=== PATIENT | male | born 1940 | race Caucasian/White ===

== ENCOUNTER 2017-01-16 09:51 | Observation (INO) | payer MEDICARE, SELFPAY ==
[~2017-01-16] VITALS: Ht 180.3 cm; Wt 91.7 kg
[2017-01-16 11:27] LABS: BASO % 0.6 % (0.2-1.2); EOS # 0.1 10_X3_uL (0.0-0.5); GRAN # 4.8 10_X3_uL (1.8-5.4); GRAN % 72.3 % (34.0-67.9); HEMATOCRIT 45.5 % (40-51); HEMOGLOBIN 15.4 g/dL (13.7-17.5); LYMPH # 1.2 10_X3_uL (1.3-3.6); LYMPH % 18.6 % (21.8-53.1); MEAN CORPUSCULAR HEMOGLOBIN 30.2 pg (27.0-33.0); MEAN CORPUSCULAR HGB CONC 33.8 g/dL (32.0-36.0); MEAN CORPUSCULAR VOLUME 89.2 fL (79-92); MEAN PLATELET VOLUME 11.6 fl (7.5-11.5); MONO # 0.5 10_X3_uL (0.3-0.8); MONO % 7.5 % (5.3-12.2); PLATELET COUNT 165 x10_3/uL (163-337); RED CELL DISTRIBUTION WIDTH 14.3 % (11.6-14.4); WHITE BLOOD COUNT 6.7 x10_3/uL (4.2-9.1)
[2017-01-16 11:37] LABS: ALBUMIN 4.2 gm/dL (3.4-5.0); ALKALINE PHOSPHATASE 58 U/L (50-136); ALT/SGPT 11 U/L (7.53-40.17); AST/SGOT 16 U/L (6.66-35.34); BILIRUBIN,TOTAL 0.63 mg/dL (0.0-1.0); BLOOD UREA NITROGEN 14 mg/dL (7-18); CALCIUM 9.7 mg/dL (8.7-10.7); CARBON DIOXIDE 31 mmol/L (21-32); CREATININE 0.9 mg/dL (0.6-1.3); GLUCOSE,RANDOM 104 mg/dL (70-99); POTASSIUM 4.4 mmol/L (3.5-5.1); SODIUM 142 mmol/L (136-145); TOTAL PROTEIN 7.3 gm/dL (6.4-8.2)
[2017-01-17 07:51] LABS: AHDL CHOLESTEROL 47 mg/dL (>40); ALBUMIN 3.9 gm/dL (3.4-5.0); ALKALINE PHOSPHATASE 51 U/L (50-136); ALT/SGPT 10 U/L (7.53-40.17); AST/SGOT 15 U/L (6.66-35.34); BILIRUBIN,TOTAL 0.58 mg/dL (0.0-1.0); BLOOD UREA NITROGEN 13 mg/dL (7-18); CARBON DIOXIDE 31 mmol/L (21-32); CHOLESTEROL 216 mg/dL (0-200); CREATININE 0.9 mg/dL (0.6-1.3); GLUCOSE,RANDOM 91 mg/dL (70-99); LDL CHOLESTEROL 160 mg/dL (0-99); POTASSIUM 4.2 mmol/L (3.5-5.1); SODIUM 144 mmol/L (136-145); TOTAL PROTEIN 6.6 gm/dL (6.4-8.2); TRIGLYCERIDES 83 mg/dL (30-200)
[2017-01-18 07:14] LABS: HEMATOCRIT 39.2 % (40-51); MEAN CORPUSCULAR HEMOGLOBIN 29.5 pg (27.0-33.0); MEAN CORPUSCULAR HGB CONC 33.2 g/dL (32.0-36.0); MEAN CORPUSCULAR VOLUME 88.9 fL (79-92); MEAN PLATELET VOLUME 11.4 fl (7.5-11.5); RED BLOOD COUNT 4.41 x10_6/uL (4.6-6.1); RED CELL DISTRIBUTION WIDTH 13.8 % (11.6-14.4); WHITE BLOOD COUNT 5.3 x10_3/uL (4.2-9.1)
[2017-01-18 07:25] LABS: ALBUMIN 3.4 gm/dL (3.4-5.0); ALKALINE PHOSPHATASE 47 U/L (50-136); ALT/SGPT 8 U/L (7.53-40.17); AST/SGOT 12 U/L (6.66-35.34); BILIRUBIN,TOTAL 0.41 mg/dL (0.0-1.0); BLOOD UREA NITROGEN 17 mg/dL (7-18); CALCIUM 8.7 mg/dL (8.7-10.7); CARBON DIOXIDE 32 mmol/L (21-32); GLUCOSE,RANDOM 102 mg/dL (70-99); POTASSIUM 3.9 mmol/L (3.5-5.1); SODIUM 143 mmol/L (136-145)
[2017-01-18 14:11] LABS: URINE BILIRUBIN NEGATIVE (NEGATIVE); URINE BLOOD TRACE (NEGATIVE); URINE GLUCOSE (UA) NORMAL (NORMAL); URINE KETONE TRACE (NEGATIVE); URINE LEUKOCYTE ESTERASE TRACE (NEGATIVE); URINE NITRATE NEGATIVE (NEGATIVE); URINE PROTEIN 1+ (NEGATIVE); UROBILINOGEN NORMAL mg/dL (<1.0)
[2017-01-18 14:59] LABS: URINE BACTERIA TRACE (NONE SEEN); URINE MUCUS 1+; URINE RBC 0-5 /[HPF] (0-2); URINE SQUAMOUS EPITHELIAL CELL 0-10 /[HPF] (NONE SEEN); URINE WBC 0-5 /[HPF] (0-3)
[2017-01-19 07:37] LABS: HEMATOCRIT 43.9 % (40-51); HEMOGLOBIN 14.3 g/dL (13.7-17.5); MEAN CORPUSCULAR HEMOGLOBIN 29.7 pg (27.0-33.0); MEAN CORPUSCULAR HGB CONC 32.6 g/dL (32.0-36.0); MEAN CORPUSCULAR VOLUME 91.3 fL (79-92); MEAN PLATELET VOLUME 11.3 fl (7.5-11.5); RED BLOOD COUNT 4.81 x10_6/uL (4.6-6.1); RED CELL DISTRIBUTION WIDTH 14.1 % (11.6-14.4); WHITE BLOOD COUNT 5.6 x10_3/uL (4.2-9.1)
[2017-01-19 07:55] LABS: BLOOD UREA NITROGEN 19 mg/dL (7-18); CALCIUM 9.2 mg/dL (8.7-10.7); CARBON DIOXIDE 33 mmol/L (21-32); GLUCOSE,RANDOM 93 mg/dL (70-99); SODIUM 146 mmol/L (136-145)
== END 2017-01-19 10:45 | disposition home or self-care (01) ==
LOC: MS 09:51
PROVIDERS: ADMIT Family Medicine
DX: J44.0 Chronic obstructive pulmonary disease with (acute) lower respiratory infection (principal); J18.9 Pneumonia, unspecified organism; J44.1 Chronic obstructive pulmonary disease with (acute) exacerbation; N39.0 Urinary tract infection, site not specified; R10.32 Left lower quadrant pain; N40.0 Benign prostatic hyperplasia without lower urinary tract symptoms; I10 Essential (primary) hypertension; E78.5 Hyperlipidemia, unspecified; I25.10 Atherosclerotic heart disease of native coronary artery without angina pectoris; N28.9 Disorder of kidney and ureter, unspecified; J90 Pleural effusion, not elsewhere classified; I48.91 Unspecified atrial fibrillation; I48.92 Unspecified atrial flutter; B96.1 Klebsiella pneumoniae [K. pneumoniae] as the cause of diseases classified elsewhere; B96.89 Other specified bacterial agents as the cause of diseases classified elsewhere; R58 Hemorrhage, not elsewhere classified; R59.1 Generalized enlarged lymph nodes; R31.9 Hematuria, unspecified; R10.9 Unspecified abdominal pain; J43.9 Emphysema, unspecified; R91.1 Solitary pulmonary nodule; Z79.82 Long term (current) use of aspirin; Z79.899 Other long term (current) drug therapy; Z88.1 Allergy status to other antibiotic agents; Z88.8 Allergy status to other drugs, medicaments and biological substances
CPT/HCPCS: 36415; 71250; 80048; 80053; 80061; 80198; 81001; 82962; 83036; 85025; 87040; 87070; 87186; 87205; 93005; 94664; 96361; 96365; 96366; 96367; 96375; 99070; G0328-QW; G0378; J7050

== ENCOUNTER 2017-02-19 16:04 | Emergency (ER) | payer MEDICARE, SELFPAY | END 2017-02-19 21:12 | disposition other institution (70) | LOC: ER 16:04 | DX: J44.1 Chronic obstructive pulmonary disease with (acute) exacerbation (principal); I10 Essential (primary) hypertension; F41.9 Anxiety disorder, unspecified; Z99.81 Dependence on supplemental oxygen; Z85.038 Personal history of other malignant neoplasm of large intestine; Z79.82 Long term (current) use of aspirin; Z79.899 Other long term (current) drug therapy; Z88.1 Allergy status to other antibiotic agents ==

== ENCOUNTER 2017-02-19 16:04 | Inpatient (IN) | payer MEDICARE, OTHER | END 2017-02-24 10:26 | disposition home or self-care (01) | DRG 190 | LOC: ER 16:04 → MS 21:12 | PROVIDERS: ADMIT Family Medicine | DX: J44.1 Chronic obstructive pulmonary disease with (acute) exacerbation (principal); I50.23 Acute on chronic systolic (congestive) heart failure; J90 Pleural effusion, not elsewhere classified; I25.10 Atherosclerotic heart disease of native coronary artery without angina pectoris; N40.0 Benign prostatic hyperplasia without lower urinary tract symptoms; I11.0 Hypertensive heart disease with heart failure; R60.0 Localized edema; G89.29 Other chronic pain; M54.9 Dorsalgia, unspecified; Z85.038 Personal history of other malignant neoplasm of large intestine; I49.3 Ventricular premature depolarization; I44.7 Left bundle-branch block, unspecified; I48.91 Unspecified atrial fibrillation; Z79.82 Long term (current) use of aspirin; Z79.899 Other long term (current) drug therapy; Z88.1 Allergy status to other antibiotic agents; Z87.891 Personal history of nicotine dependence; Z86.73 Personal history of transient ischemic attack (TIA), and cerebral infarction without residual deficits; Z99.81 Dependence on supplemental oxygen; Z82.49 Family history of ischemic heart disease and other diseases of the circulatory system; Z83.3 Family history of diabetes mellitus ==

== ENCOUNTER 2017-03-14 20:25 | Emergency (ER) | payer MEDICARE, SELFPAY | END 2017-03-14 21:00 | disposition left against medical advice (07) | LOC: ER 20:25 | DX: M79.602 Pain in left arm (principal) | CPT/HCPCS: 93005; 99283-25 ==

== ENCOUNTER 2017-03-27 06:58 | Emergency (ER) | payer MEDICARE, OTHER | END 2017-03-27 08:58 | disposition other institution (70) | LOC: ER 06:58 | DX: J44.0 Chronic obstructive pulmonary disease with (acute) lower respiratory infection (principal); J18.9 Pneumonia, unspecified organism; J44.1 Chronic obstructive pulmonary disease with (acute) exacerbation; I50.9 Heart failure, unspecified; R05 Cough; R06.02 Shortness of breath; I48.91 Unspecified atrial fibrillation; R53.1 Weakness; Z99.81 Dependence on supplemental oxygen; Z79.899 Other long term (current) drug therapy; Z79.82 Long term (current) use of aspirin; Z88.1 Allergy status to other antibiotic agents | CPT/HCPCS: 99284; 99285-25 ==

== ENCOUNTER 2017-03-27 06:58 | Inpatient (IN) | payer MEDICARE, MEDICAID ==
[~2017-03-27] VITALS: Ht 180.3 cm; Wt 90.0 kg
[2017-03-27 07:16] LABS: BASO % 0.6 % (0.2-1.2); EOS # 0.1 10_X3_uL (0.0-0.5); GRAN # 4.3 10_X3_uL (1.8-5.4); GRAN % 67.4 % (34.0-67.9); HEMATOCRIT 44.3 % (40-51); HEMOGLOBIN 14.6 g/dL (13.7-17.5); LYMPH # 1.3 10_X3_uL (1.3-3.6); LYMPH % 20.9 % (21.8-53.1); MEAN CORPUSCULAR HEMOGLOBIN 29.6 pg (27.0-33.0); MEAN CORPUSCULAR VOLUME 89.9 fL (79-92); MEAN PLATELET VOLUME 11.1 fl (7.5-11.5); MONO # 0.6 10_X3_uL (0.3-0.8); MONO % 10.1 % (5.3-12.2); PLATELET COUNT 135 x10_3/uL (163-337); RED BLOOD COUNT 4.93 x10_6/uL (4.6-6.1); RED CELL DISTRIBUTION WIDTH 14.4 % (11.6-14.4); WHITE BLOOD COUNT 6.3 x10_3/uL (4.2-9.1)
[2017-03-27 07:31] LABS: ALKALINE PHOSPHATASE 55 U/L (50-136); ALT/SGPT 13 U/L (7.53-40.17); AST/SGOT 16 U/L (6.66-35.34); BILIRUBIN,TOTAL 0.66 mg/dL (0.0-1.0); BLOOD UREA NITROGEN 20 mg/dL (7-18); CALCIUM 8.9 mg/dL (8.7-10.7); CARBON DIOXIDE 26 mmol/L (21-32); CREATINE KINASE 65 U/L (35-232); CREATININE 0.9 mg/dL (0.6-1.3); GLUCOSE,RANDOM 118 mg/dL (70-99); POTASSIUM 4.2 mmol/L (3.5-5.1); SODIUM 145 mmol/L (136-145); TOTAL PROTEIN 6.6 gm/dL (6.4-8.2)
[2017-03-27 18:29] LABS: URINE BILIRUBIN NEGATIVE (NEGATIVE); URINE BLOOD TRACE (NEGATIVE); URINE GLUCOSE (UA) 50 mg/dL (NORMAL); URINE KETONE 3+ (NEGATIVE); URINE LEUKOCYTE ESTERASE TRACE (NEGATIVE); URINE NITRATE NEGATIVE (NEGATIVE); URINE PROTEIN 2+ (NEGATIVE); UROBILINOGEN NORMAL mg/dL (<1.0)
[2017-03-27 20:09] LABS: URINE MUCUS 2+; URINE RBC 0-5 /[HPF] (0-2); URINE WBC 0-5 /[HPF] (0-3)
[2017-03-28 07:16] LABS: HEMATOCRIT 40.5 % (40-51); HEMOGLOBIN 13.4 g/dL (13.7-17.5); MEAN CORPUSCULAR HEMOGLOBIN 29.6 pg (27.0-33.0); MEAN CORPUSCULAR HGB CONC 33.1 g/dL (32.0-36.0); MEAN CORPUSCULAR VOLUME 89.4 fL (79-92); MEAN PLATELET VOLUME 11.6 fl (7.5-11.5); RED BLOOD COUNT 4.53 x10_6/uL (4.6-6.1); RED CELL DISTRIBUTION WIDTH 14.2 % (11.6-14.4)
[2017-03-28 07:37] LABS: BLOOD UREA NITROGEN 22 mg/dL (7-18); CALCIUM 8.8 mg/dL (8.7-10.7); CARBON DIOXIDE 27 mmol/L (21-32); GLUCOSE,RANDOM 166 mg/dL (70-99); POTASSIUM 4.8 mmol/L (3.5-5.1); SODIUM 142 mmol/L (136-145)
[2017-03-29 07:50] LABS: HEMATOCRIT 41.4 % (40-51); HEMOGLOBIN 13.4 g/dL (13.7-17.5); MEAN CORPUSCULAR HEMOGLOBIN 29.5 pg (27.0-33.0); MEAN CORPUSCULAR HGB CONC 32.4 g/dL (32.0-36.0); MEAN PLATELET VOLUME 11.8 fl (7.5-11.5); RED BLOOD COUNT 4.55 x10_6/uL (4.6-6.1); RED CELL DISTRIBUTION WIDTH 14.9 % (11.6-14.4)
[2017-03-29 07:53] LABS: WHITE BLOOD COUNT 21.5 x10_3/uL (4.2-9.1)
[2017-03-29 07:54] LABS: ALBUMIN 3.9 gm/dL (3.4-5.0); ALKALINE PHOSPHATASE 59 U/L (50-136); ALT/SGPT 13 U/L (7.53-40.17); AST/SGOT 16 U/L (6.66-35.34); BILIRUBIN,TOTAL 0.44 mg/dL (0.0-1.0); CALCIUM 8.5 mg/dL (8.7-10.7); CARBON DIOXIDE 28 mmol/L (21-32); GLUCOSE,RANDOM 155 mg/dL (70-99); POTASSIUM 4.2 mmol/L (3.5-5.1); SODIUM 142 mmol/L (136-145); TOTAL PROTEIN 6.5 gm/dL (6.4-8.2)
[2017-03-29 07:55] LABS: BLOOD UREA NITROGEN 30 mg/dL (7-18)
[2017-03-31 06:50] LABS: HEMATOCRIT 42.7 % (40-51); HEMOGLOBIN 13.8 g/dL (13.7-17.5); MEAN CORPUSCULAR HEMOGLOBIN 29.2 pg (27.0-33.0); MEAN CORPUSCULAR HGB CONC 32.3 g/dL (32.0-36.0); MEAN CORPUSCULAR VOLUME 90.5 fL (79-92); MEAN PLATELET VOLUME 11.7 fl (7.5-11.5); RED BLOOD COUNT 4.72 x10_6/uL (4.6-6.1); RED CELL DISTRIBUTION WIDTH 14.9 % (11.6-14.4); WHITE BLOOD COUNT 13.4 x10_3/uL (4.2-9.1)
[2017-03-31 06:57] LABS: BLOOD UREA NITROGEN 30 mg/dL (7-18); CALCIUM 8.1 mg/dL (8.7-10.7); CARBON DIOXIDE 29 mmol/L (21-32); CREATININE 0.8 mg/dL (0.6-1.3); GLUCOSE,RANDOM 156 mg/dL (70-99); POTASSIUM 4.2 mmol/L (3.5-5.1); SODIUM 142 mmol/L (136-145)
== END 2017-03-31 10:35 | disposition swing bed (61) | DRG 190 ==
LOC: ER 06:58 → MS 08:58
PROVIDERS: Emergency Medicine; ADMIT Family Medicine
DX: J44.0 Chronic obstructive pulmonary disease with (acute) lower respiratory infection (principal); J18.9 Pneumonia, unspecified organism; J20.9 Acute bronchitis, unspecified; J44.1 Chronic obstructive pulmonary disease with (acute) exacerbation; B96.89 Other specified bacterial agents as the cause of diseases classified elsewhere; I48.91 Unspecified atrial fibrillation; I11.0 Hypertensive heart disease with heart failure; I50.9 Heart failure, unspecified; K59.00 Constipation, unspecified; F41.9 Anxiety disorder, unspecified; F32.9 Major depressive disorder, single episode, unspecified; R30.0 Dysuria; N40.0 Benign prostatic hyperplasia without lower urinary tract symptoms; R51 Headache; R42 Dizziness and giddiness; R07.9 Chest pain, unspecified; Z86.73 Personal history of transient ischemic attack (TIA), and cerebral infarction without residual deficits; Z79.82 Long term (current) use of aspirin; Z79.899 Other long term (current) drug therapy; Z88.1 Allergy status to other antibiotic agents; Z87.891 Personal history of nicotine dependence; Z99.81 Dependence on supplemental oxygen
CPT/HCPCS: 36415; 71010; 80048; 80053; 80198; 81001; 82550; 82553; 83605; 83880; 85025; 86738; 87040; 87070; 87186; 87205; 87449; 93005; 94640; 94664; 96365; 96375; 99070; 99284; 99285-25; J2930

== ENCOUNTER 2017-03-31 10:52 | Inpatient (IN) | payer MEDICARE, MEDICAID ==
[~2017-03-31] VITALS: Ht 189.3 cm; Wt 94.0 kg
[2017-04-03 06:40] LABS: HEMATOCRIT 44.3 % (40-51); HEMOGLOBIN 14.8 g/dL (13.7-17.5); MEAN CORPUSCULAR HEMOGLOBIN 29.6 pg (27.0-33.0); MEAN CORPUSCULAR HGB CONC 33.4 g/dL (32.0-36.0); MEAN CORPUSCULAR VOLUME 88.6 fL (79-92); MEAN PLATELET VOLUME 11.5 fl (7.5-11.5); RED CELL DISTRIBUTION WIDTH 14.7 % (11.6-14.4); WHITE BLOOD COUNT 15.7 x10_3/uL (4.2-9.1)
[2017-04-03 07:14] LABS: BLOOD UREA NITROGEN 32 mg/dL (7-18); CALCIUM 8.3 mg/dL (8.7-10.7); CARBON DIOXIDE 35 mmol/L (21-32); CREATININE 0.9 mg/dL (0.6-1.3); GLUCOSE,RANDOM 165 mg/dL (70-99); SODIUM 143 mmol/L (136-145)
[2017-04-03 15:04] LABS: URINE BILIRUBIN NEGATIVE (NEGATIVE); URINE BLOOD TRACE (NEGATIVE); URINE GLUCOSE (UA) NORMAL (NORMAL); URINE KETONE NEGATIVE (NEGATIVE); URINE LEUKOCYTE ESTERASE TRACE (NEGATIVE); URINE NITRATE NEGATIVE (NEGATIVE); URINE PROTEIN TRACE (NEGATIVE); UROBILINOGEN NORMAL mg/dL (<1.0)
[2017-04-03 15:42] LABS: URINE BACTERIA 1+ (NONE SEEN); URINE WBC 0-5 /[HPF] (0-3)
[2017-04-04 07:16] LABS: BASO % 0.1 % (0.2-1.2); EOS % 0.1 % (0.8-7.0); GRAN # 11.4 10_X3_uL (1.8-5.4); GRAN % 83.2 % (34.0-67.9); HEMATOCRIT 44.5 % (40-51); HEMOGLOBIN 14.7 g/dL (13.7-17.5); LYMPH # 0.9 10_X3_uL (1.3-3.6); LYMPH % 6.7 % (21.8-53.1); MEAN CORPUSCULAR HEMOGLOBIN 29.7 pg (27.0-33.0); MEAN CORPUSCULAR VOLUME 89.9 fL (79-92); MEAN PLATELET VOLUME 11.5 fl (7.5-11.5); MONO # 1.4 10_X3_uL (0.3-0.8); MONO % 9.9 % (5.3-12.2); PLATELET COUNT 140 x10_3/uL (163-337); RED BLOOD COUNT 4.95 x10_6/uL (4.6-6.1); RED CELL DISTRIBUTION WIDTH 14.8 % (11.6-14.4); WHITE BLOOD COUNT 13.7 x10_3/uL (4.2-9.1)
[2017-04-04 07:21] LABS: BLOOD UREA NITROGEN 30 mg/dL (7-18); CALCIUM 8.1 mg/dL (8.7-10.7); CARBON DIOXIDE 37 mmol/L (21-32); CREATININE 0.8 mg/dL (0.6-1.3); GLUCOSE,RANDOM 116 mg/dL (70-99); POTASSIUM 4.6 mmol/L (3.5-5.1); SODIUM 143 mmol/L (136-145)
[2017-04-06 08:10] LABS: HEMATOCRIT 43.7 % (40-51); HEMOGLOBIN 14.3 g/dL (13.7-17.5); MEAN CORPUSCULAR HEMOGLOBIN 29.5 pg (27.0-33.0); MEAN CORPUSCULAR HGB CONC 32.7 g/dL (32.0-36.0); MEAN CORPUSCULAR VOLUME 90.1 fL (79-92); MEAN PLATELET VOLUME 11.5 fl (7.5-11.5); RED BLOOD COUNT 4.85 x10_6/uL (4.6-6.1); RED CELL DISTRIBUTION WIDTH 14.9 % (11.6-14.4); WHITE BLOOD COUNT 10.6 x10_3/uL (4.2-9.1)
[2017-04-06 08:36] LABS: CALCIUM 8.1 mg/dL (8.7-10.7); CARBON DIOXIDE 36 mmol/L (21-32); CREATININE 0.8 mg/dL (0.6-1.3); GLUCOSE,RANDOM 105 mg/dL (70-99); POTASSIUM 4.3 mmol/L (3.5-5.1); SODIUM 144 mmol/L (136-145)
[2017-04-06 08:39] LABS: BLOOD UREA NITROGEN 20 mg/dL (7-18)
== END 2017-04-07 11:00 | disposition home or self-care (01) | DRG 190 ==
LOC: SWING 10:52
PROVIDERS: ADMIT Family Medicine
DX: J44.0 Chronic obstructive pulmonary disease with (acute) lower respiratory infection (principal); J18.9 Pneumonia, unspecified organism; J90 Pleural effusion, not elsewhere classified; J20.9 Acute bronchitis, unspecified; J44.1 Chronic obstructive pulmonary disease with (acute) exacerbation; I11.0 Hypertensive heart disease with heart failure; I50.9 Heart failure, unspecified; D72.829 Elevated white blood cell count, unspecified; E11.9 Type 2 diabetes mellitus without complications; Z79.899 Other long term (current) drug therapy; Z80.9 Family history of malignant neoplasm, unspecified; Z82.49 Family history of ischemic heart disease and other diseases of the circulatory system; Z88.1 Allergy status to other antibiotic agents
CPT/HCPCS: 36415; 71020; 80048; 81001; 85025; 87086; 94640; 99070; J2930

== ENCOUNTER 2017-04-19 14:56 | Inpatient (IN) | payer MEDICARE, OTHER ==
[~2017-04-19] VITALS: Ht 189.3 cm; Wt 90.0 kg
[2017-04-19 15:26] LABS: BASO % 0.3 % (0.2-1.2); EOS # 0.1 10_X3_uL (0.0-0.5); EOS % 2.3 % (0.8-7.0); GRAN # 4.4 10_X3_uL (1.8-5.4); GRAN % 71.8 % (34.0-67.9); MEAN CORPUSCULAR HEMOGLOBIN 29.7 pg (27.0-33.0); MEAN CORPUSCULAR HGB CONC 32.5 g/dL (32.0-36.0); MEAN CORPUSCULAR VOLUME 91.5 fL (79-92); MEAN PLATELET VOLUME 11.1 fl (7.5-11.5); MONO # 0.5 10_X3_uL (0.3-0.8); MONO % 8.6 % (5.3-12.2); PLATELET COUNT 138 x10_3/uL (163-337); RED BLOOD COUNT 4.37 x10_6/uL (4.6-6.1); RED CELL DISTRIBUTION WIDTH 14.5 % (11.6-14.4); WHITE BLOOD COUNT 6.1 x10_3/uL (4.2-9.1)
[2017-04-19 15:44] LABS: ALBUMIN 3.6 gm/dL (3.4-5.0); ALKALINE PHOSPHATASE 48 U/L (50-136); ALT/SGPT 18 U/L (7.53-40.17); AST/SGOT 17 U/L (6.66-35.34); BILIRUBIN,TOTAL 0.36 mg/dL (0.0-1.0); BLOOD UREA NITROGEN 22 mg/dL (7-18); CALCIUM 8.9 mg/dL (8.7-10.7); CARBON DIOXIDE 28 mmol/L (21-32); CREATININE 0.9 mg/dL (0.6-1.3); GLUCOSE,RANDOM 104 mg/dL (70-99); POTASSIUM 4.1 mmol/L (3.5-5.1); SODIUM 143 mmol/L (136-145); TOTAL PROTEIN 6.7 gm/dL (6.4-8.2)
[2017-04-19 18:54] LABS: ARTERIAL BLOOD GAS BASE EXCESS -4.7 mmol/L (-2.0-3.0)
[2017-04-19 19:00] LABS: ARTERIAL BLOOD GAS PCO2 94.1 mmHg (35-48)
[2017-04-19 19:11] LABS: CKMB 2.6 ng/ml (0.0-5.0)
[2017-04-19 19:14] LABS: TROP-I < 0.30 NG/ML (0.00-0.30)
--- NOTE | 2017-04-19 19:28 | NUR ---
PATIENT CAME UP FROM FLOOR AT 1730. PATIENT SAT 89% ON 3L. PATIENT STATES SMOTHERING AND SOA. PATIENT SATS DROPPED TO 77% AND STARTED ON VENTIMASK PATIENT CONTINUED TO DESAT AND DR PATTERSON CAME FROM ER TO INTUBATE. PATIENT INTUBATED AND BEGAN TRANSFER TO [facility] ICU. WILL CONTINUE TO MONITOR.
== END 2017-04-19 20:45 | disposition short-term general hospital (02) | DRG 189 ==
LOC: ER 14:56 → MS 17:00
PROVIDERS: Internal Medicine; ADMIT Family Medicine
DX: J96.00 Acute respiratory failure, unspecified whether with hypoxia or hypercapnia (principal); J44.1 Chronic obstructive pulmonary disease with (acute) exacerbation; I50.1 Left ventricular failure, unspecified; Z99.81 Dependence on supplemental oxygen; I48.91 Unspecified atrial fibrillation; I25.10 Atherosclerotic heart disease of native coronary artery without angina pectoris; Z86.73 Personal history of transient ischemic attack (TIA), and cerebral infarction without residual deficits; I44.7 Left bundle-branch block, unspecified; Z88.1 Allergy status to other antibiotic agents; Z79.899 Other long term (current) drug therapy; Z79.82 Long term (current) use of aspirin
CPT/HCPCS: 36415; 36600; 71010; 80053; 80198; 82550; 82553; 82803; 83880; 85025; 86738; 87040; 92950; 93005; 93041; 94002; 94644; 94664; 96374; 96375; 99070; 99284; 99285-25; J2704; J2930

== ENCOUNTER 2017-04-19 14:56 | Emergency (ER) | payer MEDICARE, SELFPAY | END 2017-04-19 17:00 | disposition other institution (70) | LOC: ER 14:56 | PROC: 0BH17EZ Insertion of Endotracheal Airway into Trachea, Via Natural or Artificial Opening (ICD-10-PCS; principal; 2017-04-19) | PROC: 5A1935Z Respiratory Ventilation, Less than 24 Consecutive Hours (ICD-10-PCS; 2017-04-19) | DX: J96.00 Acute respiratory failure, unspecified whether with hypoxia or hypercapnia (principal); J44.1 Chronic obstructive pulmonary disease with (acute) exacerbation; I50.1 Left ventricular failure, unspecified; Z99.81 Dependence on supplemental oxygen; I48.91 Unspecified atrial fibrillation; I25.10 Atherosclerotic heart disease of native coronary artery without angina pectoris; Z86.73 Personal history of transient ischemic attack (TIA), and cerebral infarction without residual deficits; I44.7 Left bundle-branch block, unspecified; Z88.1 Allergy status to other antibiotic agents; Z79.899 Other long term (current) drug therapy; Z79.82 Long term (current) use of aspirin | CPT/HCPCS: 94002; 96374; 96375; 99284; 99285-25 ==

== ENCOUNTER 2017-08-01 14:59 | Emergency (ER) | payer MEDICARE ==
[2017-08-01 15:53] LABS: BASO % 0.1 % (0.2-1.2); EOS % 0.1 % (0.8-7.0); GRAN # 6.2 10_X3_uL (1.8-5.4); GRAN % 89.1 % (34.0-67.9); HEMATOCRIT 33.5 % (40-51); HEMOGLOBIN 10.3 g/dL (13.7-17.5); LYMPH # 0.4 10_X3_uL (1.3-3.6); LYMPH % 5.7 % (21.8-53.1); MEAN CORPUSCULAR HEMOGLOBIN 29.8 pg (27.0-33.0); MEAN CORPUSCULAR HGB CONC 30.7 g/dL (32.0-36.0); MEAN CORPUSCULAR VOLUME 96.8 fL (79-92); MEAN PLATELET VOLUME 10.8 fl (7.5-11.5); MONO # 0.4 10_X3_uL (0.3-0.8); PLATELET COUNT 121 x10_3/uL (163-337); RED BLOOD COUNT 3.46 x10_6/uL (4.6-6.1); RED CELL DISTRIBUTION WIDTH 16.8 % (11.6-14.4)
[2017-08-01 16:12] LABS: ALBUMIN 3.3 gm/dL (3.4-5.0); ALKALINE PHOSPHATASE 49 U/L (50-136); ALT/SGPT 43 U/L (7.53-40.17); AST/SGOT 27 U/L (6.66-35.34); BILIRUBIN,TOTAL 0.47 mg/dL (0.0-1.0); BLOOD UREA NITROGEN 22 mg/dL (7-18); CALCIUM 8.7 mg/dL (8.7-10.7); CARBON DIOXIDE 32 mmol/L (21-32); CREATINE KINASE 25 U/L (35-232); CREATININE 0.8 mg/dL (0.6-1.3); GLUCOSE,RANDOM 189 mg/dL (70-99); POTASSIUM 4.3 mmol/L (3.5-5.1); SODIUM 142 mmol/L (136-145); TOTAL PROTEIN 5.6 gm/dL (6.4-8.2)
[2017-08-01 17:58] LABS: ARTERIAL BLD GAS O2 SATURATION 97.1 % (94-98); ARTERIAL BLOOD GAS BASE EXCESS 5.3 mmol/L (-2.0-3.0); ARTERIAL BLOOD GAS HCO3 29.8 mmol/L (22-26); ARTERIAL BLOOD GAS PCO2 45.4 mmHg (35-48); ARTERIAL BLOOD GAS pH 7.43 (7.35-7.45)
== END 2017-08-01 19:50 | disposition home or self-care (01) ==
LOC: ER 14:59
PROVIDERS: Emergency Medicine
DX: J44.9 Chronic obstructive pulmonary disease, unspecified (principal); I50.9 Heart failure, unspecified
CPT/HCPCS: 36415; 71010; 80053; 82550; 82553; 82803; 83880; 85025; 86738; 87449; 93005; 94664; J2930